=== PATIENT | female | born 1935 | race Caucasian/White ===

== ENCOUNTER 2016-08-19 22:17 | Inpatient (IN) | payer OTHER ==
[~2016-08-19] VITALS: Ht 157.5 cm; Wt 57.4 kg
[2016-08-19 23:23] LABS: EOSINOPHIL (%) 0 % (0-5); HEMATOCRIT 48.9 % (36.0-46.0); IMMATURE GRANULOCYTE (%) 0.8 % (0.0-0.7); IMMATURE GRANULOCYTE COUNT 0.2 K/uL; LYMPHOCYTE COUNT 0.7 K/uL (1.0-2.8); MCH 31.4 PG (29.0-34.0); MCHC 34.4 G/DL (30.0-36.0); MCV 91.4 FL (83-99); MEAN PLAT.VOLUME 9.4 uM^3 (9.5-12.4); MONOCYTE (%) 5.5 % (3-12); MONOCYTE COUNT 1.2 K/uL (0-0.8); NEUTROPHIL (%) 90.4 % (45-76); PLATELET COUNT 207 K/uL (156-360); RBC DIS.WIDTH-CV 13.5 % (11.8-14.6); RBC DIS.WIDTH-SD 45.7 % (39-53); RED BLOOD COUNT 5.35 M/uL (3.80-5.20); WHITE BLOOD COUNT 21.1 K/uL (4.1-10.2)
[2016-08-19 23:31] LABS: CHLORIDE 98 mEq/L (99-109); POTASSIUM 4.5 mEq/L (3.7-5.4); SODIUM 139 mEq/L (136-147)
[2016-08-19 23:33] LABS: GLUCOSE 156 mg/dL (70-99)
[2016-08-19 23:34] LABS: ANION GAP 17 MEQ/L (2-14)
[2016-08-19 23:37] LABS: GFR ESTIMATE (CALCULATED) 46 mL/min/; UREA NITROGEN (BUN) 20 mg/dL (9-23)
[2016-08-20 00:13] LABS: TOTAL BILIRUBIN 0.9 mg/dL (0.0-1.0)
[2016-08-20 00:14] LABS: ALKALINE PHOSPHATASE 51 IU/L (3-129)
[2016-08-20 00:17] LABS: DIRECT BILIRUBIN 0.3 mg/dL (0.0-0.3)
[2016-08-20 00:18] LABS: LIPASE 5 U/L (1.0-51.0)
[2016-08-20 04:34] VITALS: BP 136/63
[2016-08-20 06:41] LABS: HEMATOCRIT 39.1 % (36.0-46.0); MCH 30.7 PG (29.0-34.0); MCHC 33.2 G/DL (30.0-36.0); MCV 92.4 FL (83-99); MEAN PLAT.VOLUME 9.2 uM^3 (9.5-12.4); PLATELET COUNT 167 K/uL (156-360); RBC DIS.WIDTH-CV 13.7 % (11.8-14.6); RBC DIS.WIDTH-SD 46.4 % (39-53); WHITE BLOOD COUNT 16.8 K/uL (4.1-10.2)
[2016-08-20 06:45] LABS: RED BLOOD COUNT 4.23 M/uL (3.80-5.20)
[2016-08-20 07:25] LABS: ANION GAP 5 MEQ/L (2-14); C-REACTIVE PROTEIN 101.5 MG/L (0-10); CHLORIDE 106 MEQ/L (99-109); GFR ESTIMATE (CALCULATED) > 59 mL/min/; POTASSIUM 4.5 MEQ/L (3.7-5.4); SAMPLE HEMOLYSIS CHECK 0; SAMPLE ICTERIC CHECK 0; SAMPLE LIPEMIA CHECK 0; SODIUM 141 MEQ/L (136-147); UREA NITROGEN (BUN) 16 mg/dL (9-23)
[2016-08-20 07:27] LABS: GLUCOSE 84 mg/dL (70-99)
[2016-08-20 07:30] VITALS: BP 118/65
[2016-08-20] MEDS ORDERED: VERAPAMIL HCL240 MG PO (10:53)
[2016-08-20] MEDS ORDERED: ZETIA10 MG PO (10:53)
[2016-08-20] MEDS ORDERED: LEVO-T88 MCG PO (10:53)
[2016-08-20] MEDS ORDERED: LISINOPRIL5 MG PO (10:54)
[2016-08-20] MEDS ORDERED: LOPRESSOR25 MG PO (10:54)
[2016-08-20 11:26] LABS: INTERNAL CONTROL VALID? YES
[2016-08-20 11:35] VITALS: BP 116/59
[2016-08-20 11:51] LABS: POINT-OF-CARE METER ID UU14208750; POINT-OF-CARE USER ID PUTDRM
[2016-08-20 11:53] LABS: C DIFF TOXIN NEGATIVE (NEGATIVE)
[2016-08-20 12:01] LABS: PROBE CHECK PASS; SPECIMEN PROCESSING CONTROL PASS
[2016-08-20 15:15] VITALS: BP 121/57
[2016-08-20 18:01] LABS: POINT-OF-CARE METER ID UU14208750; POINT-OF-CARE USER ID PUTDRM
[2016-08-20 20:07] VITALS: BP 118/59
[2016-08-20 23:05] VITALS: BP 119/59
[2016-08-20 23:26] LABS: POINT-OF-CARE METER ID UU14208750
[2016-08-21 03:08] VITALS: BP 122/58
[2016-08-21 06:50] VITALS: BP 110/57
[2016-08-21 07:00] LABS: EOSINOPHIL (%) 0.9 % (0-5); EOSINOPHIL COUNT 0.1 K/uL (0-0.3); HEMATOCRIT 37.7 % (36.0-46.0); IMMATURE GRANULOCYTE (%) 0.7 % (0.0-0.7); IMMATURE GRANULOCYTE COUNT 0.1 K/uL; INSTRUMENT ABS NEUTROPHIL CT 8.2 K/uL; LYMPHOCYTE COUNT 1.8 K/uL (1.0-2.8); MCH 31.9 PG (29.0-34.0); MCHC 33.4 G/DL (30.0-36.0); MCV 95.4 FL (83-99); MEAN PLAT.VOLUME 9.6 uM^3 (9.5-12.4); MONOCYTE (%) 8.3 % (3-12); MONOCYTE COUNT 0.9 K/uL (0-0.8); NEUTROPHIL (%) 73.8 % (45-76); NEUTROPHIL COUNT 8.2 K/uL (1.8-6.4); PLATELET COUNT 151 K/uL (156-360); RBC DIS.WIDTH-SD 49.2 % (39-53); RED BLOOD COUNT 3.95 M/uL (3.80-5.20); WHITE BLOOD COUNT 11.2 K/uL (4.1-10.2)
[2016-08-21 07:17] LABS: ALKALINE PHOSPHATASE 36 IU/L (3-129); ANION GAP 12 MEQ/L (2-14); ANION GAP 8 MEQ/L (2-14); CHLORIDE 108 MEQ/L (99-109); GFR ESTIMATE (CALCULATED) > 59 mL/min/; GLUCOSE 51 mg/dL (70-99); POTASSIUM 4.2 MEQ/L (3.7-5.4); SAMPLE HEMOLYSIS CHECK 0; SAMPLE ICTERIC CHECK 0; SAMPLE LIPEMIA CHECK 0; SODIUM 141 MEQ/L (136-147); SODIUM 142 MEQ/L (136-147); TOTAL BILIRUBIN 0.7 MG/DL (0.0-1.0); UREA NITROGEN (BUN) 12 mg/dL (9-23); UREA NITROGEN (BUN) 13 mg/dL (9-23)
[2016-08-21 16:10] VITALS: BP 119/56
[2016-08-22 00:18] VITALS: BP 150/72
[2016-08-22 07:22] LABS: EOSINOPHIL (%) 1.8 % (0-5); EOSINOPHIL COUNT 0.2 K/uL (0-0.3); HEMATOCRIT 40.7 % (36.0-46.0); IMMATURE GRANULOCYTE (%) 0.5 % (0.0-0.7); IMMATURE GRANULOCYTE COUNT 0.1 K/uL; INSTRUMENT ABS NEUTROPHIL CT 6.6 K/uL; LYMPHOCYTE COUNT 1.6 K/uL (1.0-2.8); MCH 30.8 PG (29.0-34.0); MCHC 32.7 G/DL (30.0-36.0); MCV 94.2 FL (83-99); MEAN PLAT.VOLUME 9.5 uM^3 (9.5-12.4); MONOCYTE (%) 7.6 % (3-12); MONOCYTE COUNT 0.7 K/uL (0-0.8); NEUTROPHIL (%) 72.1 % (45-76); NEUTROPHIL COUNT 6.6 K/uL (1.8-6.4); PLATELET COUNT 172 K/uL (156-360); RBC DIS.WIDTH-CV 13.5 % (11.8-14.6); RBC DIS.WIDTH-SD 47.6 % (39-53); RED BLOOD COUNT 4.32 M/uL (3.80-5.20); WHITE BLOOD COUNT 9.1 K/uL (4.1-10.2)
[2016-08-22 07:48] LABS: ALKALINE PHOSPHATASE 39 IU/L (3-129); ANION GAP 8 MEQ/L (2-14); CHLORIDE 107 MEQ/L (99-109); GFR ESTIMATE (CALCULATED) > 59 mL/min/; GLUCOSE 68 mg/dL (70-99); POTASSIUM 3.4 MEQ/L (3.7-5.4); SAMPLE HEMOLYSIS CHECK 0; SAMPLE ICTERIC CHECK 0; SAMPLE LIPEMIA CHECK 0; SODIUM 142 MEQ/L (136-147); TOTAL BILIRUBIN 0.7 MG/DL (0.0-1.0); UREA NITROGEN (BUN) 6 mg/dL (9-23)
[2016-08-22 07:50] LABS: ANION GAP 9 MEQ/L (2-14); CHLORIDE 106 MEQ/L (99-109); GFR ESTIMATE (CALCULATED) > 59 mL/min/; GLUCOSE 68 mg/dL (70-99); POTASSIUM 3.4 MEQ/L (3.7-5.4); SAMPLE HEMOLYSIS CHECK 0; SAMPLE ICTERIC CHECK 0; SAMPLE LIPEMIA CHECK 0; SODIUM 141 MEQ/L (136-147); UREA NITROGEN (BUN) 6 mg/dL (9-23)
[2016-08-22 08:04] VITALS: BP 120/76
[2016-08-22 15:46] VITALS: BP 132/73
[2016-08-23 00:19] VITALS: BP 165/74
[2016-08-23 01:30] VITALS: BP 145/78
[2016-08-23 07:12] VITALS: BP 125/60
[2016-08-23 07:17] LABS: EOSINOPHIL (%) 2.7 % (0-5); EOSINOPHIL COUNT 0.2 K/uL (0-0.3); HEMATOCRIT 35.7 % (36.0-46.0); IMMATURE GRANULOCYTE (%) 0.8 % (0.0-0.7); IMMATURE GRANULOCYTE COUNT 0.1 K/uL; LYMPHOCYTE COUNT 1.3 K/uL (1.0-2.8); MCH 31.8 PG (29.0-34.0); MCHC 33.9 G/DL (30.0-36.0); MCV 93.9 FL (83-99); MEAN PLAT.VOLUME 9.7 uM^3 (9.5-12.4); MONOCYTE (%) 11.1 % (3-12); MONOCYTE COUNT 0.7 K/uL (0-0.8); NEUTROPHIL (%) 63.6 % (45-76); PLATELET COUNT 149 K/uL (156-360); RBC DIS.WIDTH-CV 13.6 % (11.8-14.6); RBC DIS.WIDTH-SD 46.9 % (39-53); WHITE BLOOD COUNT 6.3 K/uL (4.1-10.2)
[2016-08-23 08:06] LABS: ANION GAP 7 MEQ/L (2-14); CHLORIDE 107 MEQ/L (99-109); GFR ESTIMATE (CALCULATED) > 59 mL/min/; GLUCOSE 67 mg/dL (70-99); POTASSIUM 2.9 MEQ/L (3.7-5.4); SAMPLE HEMOLYSIS CHECK 0; SAMPLE ICTERIC CHECK 0; SAMPLE LIPEMIA CHECK 0; SODIUM 146 MEQ/L (136-147); UREA NITROGEN (BUN) 2 mg/dL (9-23)
[2016-08-23 16:14] VITALS: BP 172/78
[2016-08-23 20:07] VITALS: BP 165/73
[2016-08-24 00:15] VITALS: BP 168/76
[2016-08-24 03:54] VITALS: BP 116/56
[2016-08-24 06:56] LABS: HEMATOCRIT 36.1 % (36.0-46.0); MCH 32.7 PG (29.0-34.0); MCHC 34.6 G/DL (30.0-36.0); MCV 94.5 FL (83-99); MEAN PLAT.VOLUME 9.2 uM^3 (9.5-12.4); PLATELET COUNT 155 K/uL (156-360); RBC DIS.WIDTH-CV 13.3 % (11.8-14.6); RBC DIS.WIDTH-SD 45.7 % (39-53); RED BLOOD COUNT 3.82 M/uL (3.80-5.20); WHITE BLOOD COUNT 5.7 K/uL (4.1-10.2)
[2016-08-24 07:15] VITALS: BP 122/58
[2016-08-24 09:49] LABS: ANION GAP 6 MEQ/L (2-14); CHLORIDE 103 MEQ/L (99-109); POTASSIUM 3.4 MEQ/L (3.7-5.4); SAMPLE HEMOLYSIS CHECK 0; SAMPLE ICTERIC CHECK 0; SAMPLE LIPEMIA CHECK 0; SODIUM 143 MEQ/L (136-147)
[2016-08-24 09:54] LABS: GFR ESTIMATE (CALCULATED) > 59 mL/min/; GLUCOSE 55 mg/dL (70-99); UREA NITROGEN (BUN) 2 mg/dL (9-23)
[2016-08-24 11:15] VITALS: BP 151/67
[2016-08-24 15:45] VITALS: BP 155/72
[2016-08-24 20:29] VITALS: BP 168/78
[2016-08-25 00:23] VITALS: BP 167/73
[2016-08-25 04:26] VITALS: BP 135/68
[2016-08-25 06:55] VITALS: BP 150/76
[2016-08-25 07:02] LABS: HEMATOCRIT 36.7 % (36.0-46.0); MCH 31.2 PG (29.0-34.0); MCHC 33.8 G/DL (30.0-36.0); MCV 92.4 FL (83-99); MEAN PLAT.VOLUME 8.9 uM^3 (9.5-12.4); PLATELET COUNT 172 K/uL (156-360); RBC DIS.WIDTH-CV 13.2 % (11.8-14.6); RBC DIS.WIDTH-SD 44.8 % (39-53); RED BLOOD COUNT 3.97 M/uL (3.80-5.20); WHITE BLOOD COUNT 6.1 K/uL (4.1-10.2)
[2016-08-25 07:28] LABS: ANION GAP 6 MEQ/L (2-14); CHLORIDE 104 MEQ/L (99-109); GFR ESTIMATE (CALCULATED) > 59 mL/min/; GLUCOSE 79 mg/dL (70-99); POTASSIUM 3.2 MEQ/L (3.7-5.4); SAMPLE HEMOLYSIS CHECK 0; SAMPLE ICTERIC CHECK 0; SAMPLE LIPEMIA CHECK 0; SODIUM 145 MEQ/L (136-147); UREA NITROGEN (BUN) 3 mg/dL (9-23)
[2016-08-25 15:43] VITALS: BP 149/74
[2016-08-25] MEDS ORDERED: ADVAIR HFA120 INHALA IH (17:56)
[2016-08-25] MEDS ORDERED: SPIRIVA RESPIMAT4 GM IH (17:56)
== END 2016-08-25 19:35 | disposition home or self-care (01) | DRG 386 ==
LOC: EME 22:17 → RME 22:17 → 2EAST 08-20 02:42 → EDOF 08-20 02:42 → 2EAST 08-20 04:28
PROVIDERS: Hospitalist; Internal Medicine Gastroenterology; Nurse Practitioner Adult Health; Pediatrics; Physician Assistant
DX: K51.00 Ulcerative (chronic) pancolitis without complications (principal); K63.3 Ulcer of intestine; K55.9 Vascular disorder of intestine, unspecified; I42.1 Obstructive hypertrophic cardiomyopathy; I42.2 Other hypertrophic cardiomyopathy; J44.9 Chronic obstructive pulmonary disease, unspecified; J43.2 Centrilobular emphysema; I25.10 Atherosclerotic heart disease of native coronary artery without angina pectoris; K57.30 Diverticulosis of large intestine without perforation or abscess without bleeding; R09.02 Hypoxemia; R19.7 Diarrhea, unspecified; K62.5 Hemorrhage of anus and rectum; K64.8 Other hemorrhoids; L54 Erythema in diseases classified elsewhere; E11.9 Type 2 diabetes mellitus without complications; D12.5 Benign neoplasm of sigmoid colon; I10 Essential (primary) hypertension; K64.4 Residual hemorrhoidal skin tags; F17.210 Nicotine dependence, cigarettes, uncomplicated; E78.5 Hyperlipidemia, unspecified; E03.9 Hypothyroidism, unspecified; I34.0 Nonrheumatic mitral (valve) insufficiency; E87.6 Hypokalemia; K59.00 Constipation, unspecified; Z82.49 Family history of ischemic heart disease and other diseases of the circulatory system; Z95.5 Presence of coronary angioplasty implant and graft
CPT/HCPCS: 71275; 74177; 80048; 80053; 80069; 80076; 82948; 83605; 83630; 83690; 84132 91; 85025; 85027; 86140; 86900; 86901; 87040; 87493; 87506; 88305; 93005; 94640; 94640 76; 94799; 99281; 99285; J1650; J1956; J2250; J2405; J3010; J3475; J3480; J7030; J7040; S0028; S0030